=== PATIENT | male | born 1995 ===

== ENCOUNTER 2018-04-25 22:41 | Emergency (ER) | payer SELFPAY ==
[2018-04-25 22:56] VITALS: TEMP 98.3
[2018-04-25 23:46] LABS: BASO # 0.1 K/uL (0.0-0.2); BASO % 0.9 % (0.0-2.0); EOS # 0.3 K/uL (0.0-0.7); EOS % 2.7 % (0.0-4.0); HEMOGLOBIN 15.6 g/dL (12.0-18.0); LYMPH # 2.6 K/uL (1.0-4.3); LYMPH % 25.8 % (20.0-40.0); MEAN CORPUSCULAR HEMOGLOBIN 30.9 pg (27.0-31.0); MEAN CORPUSCULAR HGB CONC 34.7 g/dL (33.0-37.0); MEAN PLATELET VOLUME 9.3 fL (7.2-11.7); MONO # 0.8 K/uL (0.0-0.8); MONO % 7.6 % (0.0-10.0); NEUT # 6.2 K/uL (1.8-7.0); RBC 5.04 Mil/uL (4.40-5.90); RED CELL DISTRIBUTION WIDTH 13.6 % (11.5-14.5); WHITE BLOOD COUNT 9.9 K/uL (4.8-10.8)
[2018-04-26] LABS: ALB/GLOB RATIO 1.9 (1.0-2.1); ALBUMIN 5.3 g/dL (3.5-5.0); ALT/SGPT 46 U/L (21-72); AST/SGOT 29 U/L (17-59); BLOOD UREA NITROGEN 18 mg/dL (9-20); CALCIUM 10.1 mg/dl (8.6-10.4); GFR NON-AFRICAN AMERICAN > 60
--- NOTE | 2018-04-26 00:04 | C.PDOC ---
History Of Present Illness 23 year old female presents to the ED c/o left sided chest pain. Patient states pain is mostly located in her anterior chest wall. Patient denies injury, fall, trauma, SOB, palpitations, weakness, numbness, rash, weakness, numbness. Chief Complaint (Nursing): Abdominal Pain History Per: Patient History/Exam Limitations: no limitations Onset/Duration Of Symptoms: Hrs Current Symptoms Are (Timing): Still Present Location Of Pain/Discomfort: Diffuse Radiation Of Pain To:: Chest Quality Of Discomfort: Unable To Describe Associated Symptoms: denies: Fever, Chills, Nausea, Vomiting, Urinary Symptoms Recent travel outside of the [place]: No Additional History Per: Patient Past Medical History Reviewed: Historical Data, Nursing Documentation, Vital Signs Vital Signs: Last Vital Signs Temp 98.3 F 04/25/18 22:53 Pulse 70 04/26/18 00:29 Resp 14 04/26/18 00:29 BP 128/66 04/26/18 00:29 Pulse Ox 100 04/26/18 00:29 - Medical History PMH: No Chronic Diseases Surgical History: No Surg Hx Family History: States: Unknown Family Hx - Social History Hx Alcohol Use: Yes Hx Substance Use: No - Immunization History Hx Tetanus Toxoid Vaccination: No Hx Influenza Vaccination: No Hx Pneumococcal Vaccination: No Review Of Systems Constitutional: Negative for: Fever, Chills Cardiovascular: Positive for: Chest Pain. Negative for: Palpitations Respiratory: Negative for: Cough, Shortness of Breath Gastrointestinal: Negative for: Nausea, Vomiting Genitourinary: Negative for: Dysuria, Hematuria Musculoskeletal: Negative for: Back Pain Skin: Negative for: Rash Neurological: Negative for: Weakness, Numbness Physical Exam - Physical Exam Appears: Non-toxic, No Acute Distress Skin: Normal Color, Warm, Dry Head: Atraumatic, Normacephalic Eye(s): bilateral: Normal Inspection Neck: Normal ROM, No Midline Cervical Tenderness, Supple Chest: Symmetrical, Tenderness (left anterior chest wall subcostal area) Cardiovascular: Rhythm Regular Respiratory: Normal Breath Sounds, No Rales, No Rhonchi, No Wheezing Gastrointestinal/Abdominal: Soft, No Tenderness, No Guarding, No Rebound Extremity: Normal ROM, No Tenderness, No Swelling Neurological/Psych: Oriented x3, Normal Speech, Normal Cognition Gait: Steady ED Course And Treatment - Laboratory Results Result Diagrams: 04/25/18 23:42 04/25/18 23:42 ECG: Interpreted By Me, Viewed By Me ECG Rhythm: Sinus Rhythm ECG Interpretation: Normal, No Acute Changes Interpretation Of ECG: NSR, normal tracings. Rate From EC O2 Sat by Pulse Oximetry: 97 (ON RA) Pulse Ox Interpretation: Normal - Radiology CXR: Interpreted by Me, Viewed By Me CXR Interpretation: Yes: No Acute Disease, Other (normal x-ray). No: Infiltrates Medical Decision Making Medical Decision Making: Plan: * EKG * CXR * Labs * Toradol 30 mg IVP Disposition Counseled Patient/Family Regarding: Diagnosis - Disposition Referrals: [facility] at [facility] [Outside] Disposition: HOME/ ROUTINE Disposition Time: 00:04 Condition: STABLE Prescriptions: Naproxen 375 mg PO Q6 #14 tablet Instructions: Costochondritis Forms: [facility] (Kiswahili), Gen Discharge Inst Eritrean Print Language: CZECH - POA Present On Arrival: None - Clinical Impression Clinical Impression: Costochondritis - Scribe Statement The provider has reviewed the documentation as recorded by the Scribe Luis Alberto Boland All medical record entries made by the Scribe were at my direction and personally dictated by me. I have reviewed the chart and agree that the record accurately reflects my personal performance of the history, physical exam, medical decision making, and the department course for this patient. I have also personally directed, reviewed, and agree with the discharge instructions and disposition.
[2018-04-26 00:30] VITALS: BP 128/66; PULSE 70; RESP 14
[2018-04-26 00:36] VITALS: O2SAT 97
--- NOTE | 2018-04-26 09:03 | RAD ---
Date of service: 04/25/2018 HISTORY: chest pain COMPARISON: Correlation made with concurrent radiographs of the left ribs. TECHNIQUE: Chest PA and lateral FINDINGS: LUNGS: No active pulmonary disease. PLEURA: No significant pleural effusion identified. No pneumothorax apparent. CARDIOVASCULAR: Normal. 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 . Clinical correlation with history recommended. VISUALIZED UPPER ABDOMEN: Normal. OTHER FINDINGS: None. IMPRESSION: No acute infiltrates. 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 . Clinical correlation with history recommended.
--- NOTE | 2018-04-26 09:05 | RAD ---
Date of service: 04/25/2018 PROCEDURE: Radiographs of the Chest and Left Ribs. HISTORY: left costal area pain COMPARISON: Comparison made with concurrent radiographs of the chest. TECHNIQUE: Frontal radiograph of the chest and multiple oblique radiographs of the left ribs were obtained. 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 . Clinical correlation with history recommended. LUNGS: Clear. PLEURA: No pneumothorax or pleural fluid. CARDIOVASCULAR: Normal sized heart. No pulmonary vascular congestion. OTHER FINDINGS: None. 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 . Clinical correlation with history recommended.
== END 2018-04-26 00:29 | disposition home or self-care (01) ==
LOC: C.ER 22:41
DX: M94.0 Chondrocostal junction syndrome [Tietze] (principal)
CPT/HCPCS: 71046; 71101; 80053; 84484; 85025; 96374; 99284; J1885

== ENCOUNTER 2018-11-15 19:11 | Emergency (ER) | payer OTHER ==
[2018-11-15 19:40] VITALS: BP 134/73; PULSE 84; RESP 14; TEMP 98.6; O2SAT 99
--- NOTE | 2018-11-15 20:29 | C.PDOC ---
History Of Present Illness 23 y/o male c/o itching to right side face and chest since yesterday, taking 25 mg benadryl with no improvement. pt sts he got a shave in [place] on . otherwise no new symptoms. deniers any other new foods, or topical substances. no trouble breathing or swallowing. Time Seen by Provider: 11/15/18 19:53 Chief Complaint (Nursing): Abnormal Skin Integrity History/Exam Limitations: language barrier ([facility] #[id number]) Onset/Duration Of Symptoms: Days Current Symptoms Are (Timing): Still Present Past Medical History Reviewed: Historical Data, Nursing Documentation, Vital Signs Vital Signs: Last Vital Signs Temp 98.6 F 11/15/18 19:37 Pulse 84 11/15/18 19:37 Resp 14 11/15/18 19:37 BP 134/73 11/15/18 19:37 Pulse Ox 99 11/15/18 19:37 - Medical History PMH: No Chronic Diseases Family History: States: Unknown Family Hx - Social History Hx Alcohol Use: Yes Hx Substance Use: No - Immunization History Hx Tetanus Toxoid Vaccination: No Hx Influenza Vaccination: No Hx Pneumococcal Vaccination: No Review Of Systems Constitutional: Negative for: Fever, Chills Cardiovascular: Negative for: Chest Pain Respiratory: Negative for: Cough, Shortness of Breath Gastrointestinal: Negative for: Nausea, Vomiting Skin: Positive for: Rash (to chest and face) Neurological: Negative for: Weakness, Numbness Physical Exam - Physical Exam Appears: Non-toxic, No Acute Distress Skin: Warm, Dry, Other (mild erythema to right lateral face along the hairline to upper cheek) Head: Atraumatic, Normacephalic Eye(s): bilateral: Normal Inspection Ear(s): Bilateral: Normal Oral Mucosa: Moist Tongue: No Swelling Lips: No Swelling Throat: No Erythema, No Exudate, Other (uvula midline) Neck: Supple Cardiovascular: Rhythm Regular, No Murmur Respiratory: No Rales, No Rhonchi, No Wheezing Extremity: Bilateral: Normal ROM Neurological/Psych: Oriented x3, Normal Speech, Normal Cognition ED Course And Treatment O2 Sat by Pulse Oximetry: 99 (RA) Pulse Ox Interpretation: Normal Medical Decision Making Medical Decision Making: mild erythematous itchy rash to right side face and anterior right chest. not urticarial. will recommend to continue with benadryl and use hydrocortisone 1%/ Disposition Counseled Patient/Family Regarding: Diagnosis, Need For Followup, Rx Given - Disposition Referrals: [facility] at [facility] [Outside] Disposition: HOME/ ROUTINE Disposition Time: 20:31 Condition: GOOD Additional Instructions: Contine tomando benadryl 25 mg por va oral cada 6 horas. Aplique alissa capa delgada de crema de hidrocortisona en la amelia en el sitio de la erupcin 2 veces al da. Seguimiento en clnica mdica. Regrese a la gertrude de emergencias para cualquier sntoma peor. Keep taking benadryl 25 mg by mouth every 6 hours. Apply thin layer of hydrocortisone cream to face at site of rash 2 times a day. Follow up in medical clinic. Return to ER for any worse symptoms. 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 - Scribe Statement The provider has reviewed the documentation as recorded by the Shahidibteagan Echevarria All medical record entries made by the Pina were at my direction and personally dictated by me. I have reviewed the chart and agree that the record accurately reflects my personal performance of the history, physical exam, medical decision making, and the department course for this patient. I have also personally directed, reviewed, and agree with the discharge instructions and disposition.
== END 2018-11-15 20:39 | disposition home or self-care (01) ==
LOC: C.ER 19:11
DX: R21 Rash and other nonspecific skin eruption (principal)